=== PATIENT | female | born 1955 | race Caucasian/White ===

== ENCOUNTER → 2017-06-08 11:59 | Outpatient (CLI) | payer OTHER, SELFPAY ==
[2017-06-08 13:33] LABS: Progesterone Level 14.23 ng/mL (See Comment)
[2017-06-08 13:37] LABS: Estradiol 41.2 pg/mL; Free T3 2.6 pg/mL (2.18-3.98); T4 Free Direct 0.85 ng/dL (0.76-1.46); Thyroid Stim Hormone (TSH) 0.58 uIU/mL (0.358-3.74)
== END ==
PROVIDERS: Family Provider Student in an Organized Health Care Education/Training Program; PCP Student in an Organized Health Care Education/Training Program; Visit Provider Specialist
DX: N95.1 Menopausal and female climacteric states (principal); E03.8 Other specified hypothyroidism
CPT/HCPCS: 36415; 82670; 84144; 84403; 84439; 84443; 84481

== ENCOUNTER → 2017-09-06 15:37 | Outpatient (CLI) | payer OTHER, SELFPAY ==
[2017-09-06 18:32] LABS: Estradiol 43.5 pg/mL; Thyroid Stim Hormone (TSH) 0.16 uIU/mL (0.358-3.74)
[2017-09-07 09:07] LABS: Progesterone Level 11.53 ng/mL (See Comment)
== END ==
PROVIDERS: Family Provider Student in an Organized Health Care Education/Training Program; PCP Student in an Organized Health Care Education/Training Program; Visit Provider Specialist
DX: E03.8 Other specified hypothyroidism (principal); N95.1 Menopausal and female climacteric states
CPT/HCPCS: 36415; 82670; 84144; 84403; 84443; 84481

== ENCOUNTER → 2017-12-27 11:55 | Outpatient (CLI) | payer OTHER, SELFPAY ==
[2017-12-27 13:22] LABS: Estradiol 35.7 pg/mL
== END ==
PROVIDERS: Family Provider Student in an Organized Health Care Education/Training Program; PCP Student in an Organized Health Care Education/Training Program; Referring Provider Specialist; Visit Provider Specialist
DX: N95.1 Menopausal and female climacteric states (principal); E03.8 Other specified hypothyroidism
CPT/HCPCS: 36415; 82670; 84144; 84403; 84481

== ENCOUNTER → 2018-05-24 08:56 | Outpatient (CLI) | payer OTHER, SELFPAY ==
[2018-05-24 10:31] LABS: Estradiol 32.9 pg/mL; Free T3 6.3 pg/mL (2.18-3.98)
[2018-05-24 10:33] LABS: Progesterone Level 30.19 ng/mL (See Comment)
== END ==
PROVIDERS: Family Provider Student in an Organized Health Care Education/Training Program; PCP Student in an Organized Health Care Education/Training Program; Referring Provider Specialist; Visit Provider Specialist
DX: E03.8 Other specified hypothyroidism (principal); N95.1 Menopausal and female climacteric states
CPT/HCPCS: 36415; 82670; 84144; 84403; 84481

== ENCOUNTER → 2018-08-19 | Outpatient (CLI) | payer OTHER, SELFPAY ==
[2018-08-19 12:52] LABS: Progesterone Level 18.51 ng/mL (See Comment)
[2018-08-19 12:54] LABS: Estradiol 43.9 pg/mL; Free T3 2.7 pg/mL (2.18-3.98)
== END | disposition home or self-care (01) ==
LOC: LAB 11:56
PROVIDERS: Family Provider Student in an Organized Health Care Education/Training Program; PCP Student in an Organized Health Care Education/Training Program; Referring Provider Specialist; Visit Provider Specialist
DX: E03.9 Hypothyroidism, unspecified (principal); N95.1 Menopausal and female climacteric states
CPT/HCPCS: 36415; 82670; 84144; 84403; 84481

== ENCOUNTER → 2019-08-05 07:06 | Outpatient (CLI) | payer OTHER, SELFPAY ==
--- NOTE | 2019-08-05 07:16 | BI_ITS ---
MAMMOGRAPHY - BILATERAL SCREENING REASON FOR EXAM: Female, 63 years old. Routine annual screening examination. PERTINENT HISTORY: Aunt with breast cancer. TECHNIQUE: Digital bilateral breast eva (3D mammographic acquisition) in the CC and MLO projections. 2-D mediolateral oblique (MLO) and craniocaudad (CC) views of both breasts were obtained. CAD: Full Field Digital Mammography with Computer Added Detection was performed. COMPARISON: Comparison is made with prior examination dated January 29, 2017 and January 06, 2015. FINDINGS: Breast Composition: The breasts are heterogeneously dense, which may obscure small masses. There are no dominant masses or suspicious calcifications. Stable small benign-appearing bilateral axillary lymph nodes. No other significant abnormalities are identified. There has been no significant change since the prior study. BI/SCREEN MAMM (CAD) W/EVA BILAT IMPRESSION: Stable bilateral screening mammogram. Yearly follow-up mammogram recommended. (A) ASSESSMENT CATEGORY: BIRADS Category 2: Benign. A letter regarding these results will be sent to the patient by the facility within 30 days. Approximately 10% of breast cancers are not detected by mammography. A normal mammogram should not delay biopsy of a clinically suspicious abnormality. [id number] Electronically Signed: Silvestre Suggs, at 12:15 EDT , Service support ,
--- NOTE | 2019-08-05 07:59 | BD_ITS ---
STUDY: DUAL ENERGY X-RAY ABSORPTIOMETRY / DXA REASON FOR EXAM: Female, 63 years old. 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 COMPARISON: Comparison is made with prior study dated January 06, 2015. FINDINGS: Lumbar Spine (L1-L4): g/cm2 (1.131) / T-score (-0.4) / Z-score (0.9) Findings are suggestive of normal bone density with a low fracture risk. There is straightening of the normal thoracic kyphosis. Left Femur Total: g/cm2 (0.924) / T-score (-0.7) / Z-score (0.4) Left Femoral Neck: g/cm2 (0.841) / T-score (-1.4) / Z-score (-0.1) Right Femur Total: g/cm2 (0.85) / T-score (-1.2) / Z-score (-0.2) Right Femoral Neck: g/cm2 (0.830) / T-score (-1.5) / Z-score (-0.2) The T-Scores on the most recent prior examination were: Lumbar Spine (L1-L4): There has been improvement of bone density since the previous examination. Left Femur Total: which represents an improvement of 1.4%. Right Femur Total: which represents a worsening of 0.1%. BD/Dexa Bone Density Study IMPRESSION: The patient is considered osteopenic as outlined below according to World Endy Organization (WHO) criteria with a low fracture risk. There has been improvement of bone density since the previous examination. Reference Information: The T-score is the number of standard deviations above or below the standard which is normal for young adults at their peak bone mineral density. The World Health Organization (WHO) interprets the T-scores as follows: Above -1 Normal bone density Between -1 and -2.5 Osteopenia Equal to / or below -2.5 Osteoporosis As a practical clinical guideline, osteopenia may be graded as follows: Mild -1 through -1.5 Moderate -1.6 through -2.0 Severe -2.1 through -2.4 The Z-score is the number of standard deviations above or below age-matched controls. A Z-score of less than -1.5 would be considered abnormal. References: 1. NIH Osteoporosis and Related Bone Diseases http://www.osteo.org 2. International Society for Clinical Densitometry http://www.iscd.org 3. National Osteoporosis Foundation http://www.nof.org Electronically Signed: Silvestre Suggs, at 12:40 EDT , Service support ,
== END ==
PROVIDERS: PCP Student in an Organized Health Care Education/Training Program; Referring Provider Specialist; Visit Provider Specialist
DX: Z12.31 Encounter for screening mammogram for malignant neoplasm of breast (principal); Z13.820 Encounter for screening for osteoporosis
CPT/HCPCS: 77063; 77067; 77080

== ENCOUNTER 2019-12-31 12:55 | Emergency (ER) | payer OTHER, SELFPAY ==
[2019-12-31 12:56] VITALS: BP 127/80; PULSE 77; RESP 18; TEMP 35.4; O2SAT 99; BMI 21.6
--- NOTE | 2019-12-31 12:59 | RAD_ITS ---
STUDY: X-RAY - LEFT HAND REASON FOR EXAM: Female, 64 years old. 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 COMPARISON: None. FINDINGS: Normal radiocarpal articulation. Normal distal radioulnar joint. Normal visualized carpal bones. Normal carpal articulations Normal carpometacarpal articulation of the thumb. Normal second through fifth carpometacarpal joints. Normal metacarpi. Normal metacarpophalangeal joint of the thumb. Normal interphalangeal joint of the thumb. Normal proximal and distal phalanges of the thumb. Normal metacarpophalangeal joints of the second through fifth fingers. Normal proximal and distal interphalangeal joints of the second through fifth fingers. Normal phalanges of the second through fifth fingers. Soft tissue laceration overlying the distal phalanx of the fourth digit. RAD/Hand Min 3 Views IMPRESSION: Soft tissue laceration overlying the distal phalanx of the fourth digit. No radiopaque foreign body is seen. Electronically Signed: Silvestre Suggs, at 13:48 EST , Service support ,
--- NOTE | 2019-12-31 14:25 | ED.VIS.GEN ---
History of Present Illness Chief Complaint: Laceration Narrative: Patient presents with left hand laceration. She incised the volar part of her third and fourth digits. Tetanus is not up-to-date. This happened just prior to arrival she also has paresthesias distally. Past Medical History - Allergies and Home Meds Allergies/Adverse Reactions: Allergies No Known Allergies Allergy (Verified 12/31/19 12:59) Primary Care Physician: Tereso Tejada DO [Primary Care Provider] - Past Medical History: None Smoking Status: Never smoker Review of Systems Musculoskeletal: Reports: Extremity Pain Skin: Reports: Wounds Neurological: Reports: Parasthesia Hematologic: Denies: Easy bruising, Easy bleeding Physical Exam Vital Signs/Narrative: Vital Signs Temp Pulse Resp BP Pulse Ox 12/31/19 12:56 95.7 F L 77 18 127/80 H 99 General: Well nourished, Well developed ENT: Moist mucous membranes Cardiovascular: Regular rate Respiratory: No distress Back: Nontender, Normal Inspection Extremities: - - Laceration over the volar part of third and fourth digits, this is associated with decreased sensation on the fourth digit. There is also decreased flexion of the DIP on that fourth digit. Third digit has normal sensation as well as flexion tendon function. Skin: Normal color, - - Wound as above Diagnostic/Tx/Re-eval - Medical Decision Making Wound was sutured after using 1% lidocaine local analgesia. I discussed the patient with Dr. Martinez who will see the patient tomorrow in his office. The worry is for a tendon laceration which will need to be repaired. Patient also splinted with a volar Ortho-Glass splint. Procedures - Lacerations No standard instances Length: 1.57 in - 4 cm total (2 cm each finger) Depth: Skin Shape: Linear Prep: Tena Irrigated (ml): 10 Suture Information: Vicryl, Simple, 4-0 ED Disposition - Plan for ED Patient: Disposition: Home or Assisted Living Diagnosis: Hand laceration, Tendon laceration Instructions: ED Laceration Hand with Possible Nerve Injury Sutures Glue Prescriptions: Cephalexin [Keflex] 500 mg PO Q6 #20 cap Prescription Printed Hydrocodone Bitart/Apap 5-325 [[place] 5MG-325MG] 1 tab PO Q4H PRN PRN 2 Days #10 tab PRN Reason: Pain Prescription Printed Referrals: Byron Weiner MD [STAFF PHYSICIAN] - 1 Day
[2019-12-31] MEDS: Diphth,Pertuss(Acell),Tet Vac 0.5 ML Vial IM (14:36)
[2019-12-31 14:48] VITALS: BP 142/78
[2019-12-31] MEDS: Cefazolin 1 GM/5 ML Vial IM (15:10)
[2019-12-31 15:58] VITALS: BP 143/80; PULSE 84; RESP 18
== END 2019-12-31 16:02 | disposition home or self-care (01) ==
PROVIDERS: Emergency Provider Emergency Medicine; PCP Student in an Organized Health Care Education/Training Program
DX: S61.412A Laceration without foreign body of left hand, initial encounter (principal); S66.125A Laceration of flexor muscle, fascia and tendon of left ring finger at wrist and hand level, initial encounter; X58.XXXA Exposure to other specified factors, initial encounter; Y93.9 Activity, unspecified; Y92.9 Unspecified place or not applicable
CPT/HCPCS: 12002; 29125; 73130; 90471; 90715; 96372; 99284

== ENCOUNTER 2020-01-05 06:09 | Day surgery (SDC) | payer OTHER, SELFPAY ==
[2020-01-01 15:10] VITALS: BMI 21.8
--- NOTE | 2020-01-04 19:40 | PCM.HP.BLA ---
History and Physical Date of Admission: 01/05/20 HISTORY OF PRESENT ILLNESS Patient is a 64 year old female sustained lacerations to her left long finger and left ring finger after using hedge trimmers at home on 12/31/19. She went to the ED for evaluation. The x-ray showed no fractures or foreign body present. She was unable to flex her ring finger. She also has paresthesias on her ring finger distal to the laceration. She is able to flex her long finger a little bit with some limitation secondary to swelling. The lacerations were on the volar surface over the middle phalanx (zone II). The wounds were cleansed and suture repaired and a splint was applied. She is right hand dominant. She presents today for further evaluation and treatment. PAST MEDICAL HISTORY Injury while performing home maintenance Injury of digital nerve of left ring finger Laceration of left middle finger Laceration of flexor muscle, fascia and tendon of left ring finger at wrist and hand level, initial encounter Laceration of flexor muscle, fascia and tendon of left middle finger at wrist and hand level, initial encounter Asthma Bone fracture De Quervain's tenosynovitis Depression Gastrointestinal problem Hearing problem Hives Hormone deficiency Osteopenia Raynauds syndrome Thyroid disease Ulcer Vision problems UTI (urinary tract infection) PAST SURGICAL HISTORY excision of lesion sinus surgery ALLERGIES corn grape monosodium glutamate nut Quinolones MEDICATIONS Estradiol Progesterone, Micronized [Progesterone] Cephalexin [Keflex] Fluoxetine HCl Montelukast [Singulair] Albuterol Inhaler [Ventolin Hfa (SP)] Ascorbic Acid [Vitamin C] Cetirizine HCl [Zyrtec] Cholecalciferol (VIT D3) [Vitamin D] Magnesium Thyroid [[place] Thyroid] Zinc FAMILY HISTORY Mother - Bleeding disorder, Kidney disease, Lupus, CVA (cerebral vascular accident) Father - Throat cancer, CVA (cerebral vascular accident) SOCIAL HISTORY Smoking Status: Never smoker alcohol intake: current substance use type: does not use REVIEW OF SYSTEMS General - Denies fever, fatigue, and weight loss. Eyes - Denies cataracts and glaucoma. ENT - Denies nasal congestion and sore throat. Endocrine - Denies excessive thirst and urination. Skin - Denies suspicious lesions and skin cancer. Musculoskeletal - Denies joint pain, joint stiffness, weakness of muscles and joints, back pain, and arthritis. Neuro - Denies headaches. Cardiovascular - Denies chest pain, fatigue, and shortness of breath with exertion. Psych - Denies anxiety and depression. Respiratory - Denies chronic cough and shortness of breath. Gastrointestinal - Denies nausea, vomiting, diarrhea, and constipation. Hematologic - Denies abnormal bruising and bleeding. Genitourinary - Denies hematuria and urinary frequency. PHYSICAL EXAMINATION General - Alert and oriented. HEENT - PERRL. EOMI. Throat is clear. Neck - Supple and non-tender. No cervical adenopathy. Lungs- Clear to auscultation. Heart - Regular rate and rhythm. Abdomen - Soft and non distended. Extremities - FROM right upper extremity. No axillary adenopathy. Radial pulses are palpable. On the volar aspect of the left ring finger over the middle phalanx is a 2.5 cm horizontal laceration (zone II). She is not able to flex her finger at the DIP joint and at the PIP joint. Mild swelling present. She has paresthesias involving the ring finger distal to the laceration with minimal sensation to pinprick. There is a 1.5 cm laceration On the volar radial aspect of the left long finger over the middle phalanx is a 1.5 cm horizontal laceration (zone II). She is able to flex her finger at the DIP and at the PIP joint but it is decreased. Mild swelling present. Both lacerations are suture repaired. Fingers are warm with good capillary refill. Neuro - CN II-XII grossly intact. Psych - Normal mood and affect. ASSESSMENT 1. 2.5 cm horizontal laceration volar aspect left ring finger over middle phalanx with flexor tendon injury, (zone II). 2. 1.5 cm horizontal laceration volar radial aspect left long finger over middle phalanx with possible flexor tendon injury, (zone II). 3. Digital nerve laceration left ring finger. 4. Injury while performing home maintenance using [employer] trimmers. PLAN X-ray reviewed. No fracture and no foreign body seen. Patient has lacerations left ring finger and left long finger in zone II. Clinically she has a flexor tendon injury left ring finger as she is unable to flex her finger. She can flex her left long finger, but is a little decreased which could be secondary to swelling. She has paresthesias left ring finger distal to the laceration both on the radial side and ulnar side suggestive of digital nerve injury. Recommend to the patient that operative exploration is needed under general anesthesia and tourniquet control on an outpatient basis. Will extend the incision in a zig zag fashion both proximally and distally to get exposure. Sometimes the proximal end of the tendon retracts into the palm to the wrist and distal forearm. Any injured structures will be repaired, namely flexor tendons and digital nerves. Even though she has some flexor function on the long finger, I will also explore that finger as well. Any injured structures will be repaired. Postop she will have a dorsal plaster splint. After discharge, she will be seen by OT for a silastic splint and after healing, proceed with range of motion exercises, strengthening, and edema management. Will schedule the surgery in the next couple of days. Patient was informed of the risks and complications of the procedure including alternatives to surgery. These were discussed with the patient personally. Patient voices understanding and wishes to proceed. Some of the risks and complications were included in a form from the [place] [employer]. Some of the risks and complications that were discussed included but were not inclusive of failure to diagnose including symptom relief, pain, infection, numbness, stiffness, loss of digit, RSD (CRPS), need for further surgery, contracture, and wound healing problems. We discussed the current risks associated with COVID-19. While it is understood that there is a community spread of COVID-19, the risk of rodrigo COVID-19 while at [facility] ([facility]) is very low; however, the risk cannot be completely mitigated because of the community spread of the disease. We discussed in detail the risk of exposure to and/or potential harm posed by the COVID-19 virus with having a surgery/procedure at this time versus the risk of delaying the surgery/procedure. It is not possible to know either the risk of delaying the surgery or procedure or chance of getting an infection with perfect accuracy, but a joint decision was made to proceed at this time with the scheduled surgery/procedure as indicated on the consent form. Patient was notified that we will need to comply with any screening or testing [facility] wishes to perform or that surgery may be delayed for any positive results. Discussed with the patient that I was tested for COVID-19 on 08/28/19 which was negative and on 09/11/19 which was negative and on 09/25/19 which was negative and on 10/09/19 which was negative and on 10/23/19 which was negative and on 11/13/19 which was negative and on 12/04/19 which was negative. My testing regimen at this time is to be COVID-19 tested every 2 weeks or so. Procedure Criteria Procedure Type: Elective COVID Risk Discussion: The surgeon/proceduralist and patient have discussed in detail the risk of exposure to and/or potential harm posed by the COVID-19 virus with having a surgery/procedure at this time versus the risk of delaying the surgery/procedure. It is not possible to know either the risk of delaying the surgery or procedure or chance of getting an infection with perfect accuracy, but a joint decision was made between the patient and the surgeon/proceduralist to proceed at this time with the scheduled surgery/procedure as indicated on the consent form.
[2020-01-05 06:40] VITALS: BP 114/63; PULSE 72; RESP 14; TEMP 36.8; O2SAT 100; BMI 22.3
[2020-01-05] MEDS: Lactated Ringers 1,000 ML 100 ML IV (06:56)
[2020-01-05] MEDS: Cefazolin 2 GM in 0.9% Normal Saline 100 ML IV (07:26)
[2020-01-05] MEDS: Mupirocin Ointment 22gm Tube 1 APPLIC (09:30)
[2020-01-05 09:52] VITALS: BP 114/63; BP 147/91; PULSE 91; RESP 16; TEMP 36.1; O2SAT 96
--- NOTE | 2020-01-05 09:53 | OP.PCM_ITS ---
Report of Operation Date of Procedure: 01/05/20 Pre-Operative Diagnosis: 1. 2.5 cm horizontal laceration volar aspect left ring finger over middle phalanx with flexor tendon injury, (zone II). 2. 1.5 cm horizontal laceration volar radial aspect left long finger over middle phalanx with possible flexor tendon injury, (zone II). 3. Digital nerve laceration left ring finger. 4. Injury while performing home maintenance using hedge trimmers. Post-Operative Diagnosis: 1. 2.5 cm horizontal laceration volar aspect left ring finger over middle phalanx with flexor dgitorum profundus (FDP) tendon injury, (zone II). 2. 1.5 cm horizontal laceration volar radial aspect left long finger over middle phalanx, (zone II). 3. Ulnar digital nerve laceration left ring finger. 4. Radial digital nerve laceration left ring finger. 5. Injury while performing home maintenance using hedge trimmers. Surgery/Procedure Performed:: 1. Repair flexor dgitorum profundus (FDP) tendon injury, (zone II), left ring finger. 2. Exploration 1.5 cm horizontal laceration volar radial aspect left long finger over middle phalanx, (zone II), with 4.5 cm complex closure repair. 3. Epineural repair ulnar digital nerve laceration left ring finger. 4. Epineural repair radial digital nerve laceration left ring finger. Description of Surgical Findings:: Patient is a 64 year old female sustained lacerations to her left long finger and left ring finger after using hedge trimmers at home on 12/31/19. She went to the ED for evaluation. The x-ray showed no fractures or foreign body present. She was unable to flex her ring finger. She also has paresthesias on her ring finger distal to the laceration. She is able to flex her long finger a little bit with some limitation secondary to swelling. The lacerations were on the volar surface over the middle phalanx (zone II). The wounds were cleansed and suture repaired and a splint was applied. She is right hand dominant. Patient was informed of the risks and complications of the procedure including alternatives to surgery. These were discussed with the patient personally. Patient voices understanding and wishes to proceed. Some of the risks and complications were included in a form from the [place] [employer]. Some of the risks and complications that were discussed included but were not inclusive of failure to diagnose including symptom relief, pain, infection, numb ness, stiffness, loss of digit, RSD (CRPS), need for further surgery, contracture, and wound healing problems. Total tourniquet time - 109 minutes. 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 Drains: None. Estimated Blood Loss (mL): 5 ml. Description of Procedure: Patient was taken to OR in supine position and was placed under general anesthesia. The left upper extremity was prepped and draped in the usual fashion. SCD's were placed for DVT prophylaxis. Perioperative antibiotics were given intravenously. For the procedure, I wore an N95 mask and wore proper eyewear protection. Using xylocaine with epinephrine, the left long finger and left ring fingers were infiltrated as a digital metacarpal block for postoperative pain relief. The left upper extremity was elevated and an Esmarch bandage was applied. The tourniquet was elevated to 250 mmHg. I proceeded with the surgery using loupe magnification. The sutures were removed. I extended the incisions with a marker in a proximal and distal direction in a zig zag fashion. Incisions were made. I addressed the ring finger first followed by the long finger. Incisions were carried down through the subcutaneous tissue until the tendon sheath was seen. There was a hematoma in the tendon sheath indicative of tendon injury. The skin flaps were elevated at the level of the tendon sheath and retracted back and secured with 5-0 Nylon suture. I dissected out the ulnar digital nerve and radial digital nerve. Both nerves were lacerated. I will repair the flexor tendon injury and then repair the digital nerve lacerations. I made an incision in the area of the A3 linsey. I was able to push out the hematoma. I located the distal end of the flexor digitorum profundus (FDP) tendon. The proximal end was retracted a little bit. I used a tendon retriever and was able to bring the proximal end of the FDP tendon into the operative field. The flexor digitorum superficialis (FDS) tendon was seen and was noted to be intact. The injury just involved one flexor tendon. The proximal end of the FDP tendon was brought through the decussation of the FDS tendon and tendon sheath and temporarily secured with needle stabilization. I repaired the FDP tendon laceration with a modified Cloud suture technique using 4-0 Nylon suture. This was followed by 6-0 Prolene simple running epitendinous suture. I then freed up the ulnar and radial digital nerves in the area of the laceration. They were able to be brought together without tension. I proceeded with epineural repair of both digital nerve lacerations with 8-0 Nylon simple interrupted sutures. I used 6 sutures per digital nerve. I then addressed the long finger. Incisions were carried down through the subcutaneous tissue until the tendon sheath was seen. The skin flaps were elevated at the level of the tendon sheath and retracted back and secured with 5-0 Nylon suture. The tendon sheath was intact. No evidence of injury of the tendons noted. I dissected out the radial and ulnar digital nerves. They were intact and preserved. The tourniquet was released after 109 minutes. Hemostasis was obtained with compression and electrocautery. The wounds were irrigated with saline. No vascular compromise noted on the skin flaps on both fingers. I closed the wounds with 5-0 Nylon simple interrupted and vertical mattress interrupted sutures. The length of the complex closure for the left long finger is 4.5 cm. Antibiotic ointment was applied to the suture lines followed by Xeroform gauze and 2x2 gauze and 2 inch dionne wrap. I then applied a dorsal plaster splint and webril to keep the the wrist slightly flexed and to keep the fingers from extending. This was followed with a compression gini wrap. Patient tolerated the procedure well and was sent to PACU in satisfactory condition. Patient will be sent home on antibiotics and pain medication. She will keep her left hand elevated during the initial postoperative period. Patient will followup in a week for a wound check. Will make an appointment with OT for a silastic splint and after healing, range of motion exercises, strengthening, and edema management. The sutures will be removed in 2-3 weeks. Grafts/Implants Used: None. - Complications None. - Admit VTE Documentation VTE Present on Admission: No VTE Mechan Device Prophylaxis: SCD's VTE Pharm Prophylaxis ordered?: No Surgery Charges CPT - 05203 ICD-10 - S66.125A, S64.495A, S61.213A, Y93.E9 [id number] S64.495A, S66.125A, S61.213A, &93.E9 [id number] S64.495A, S66.125A, S61.213A, &93.E9 28557 S61.213A, S66.125A, S64.495A, Y93.E9
[2020-01-05 10:00] VITALS: BP 114/63; BP 149/64; PULSE 85; RESP 16; O2SAT 96
--- NOTE | 2020-01-05 10:06 | DCINST_ITS ---
You will use the following diet at home:: No restrictions Discharge Activity: May Not Drive, May Shower - in one day. wear plastic bag o cassy left hand when showering. May shower in (days): 1 - wear plastic bag over left hand when showering. May resume sexual activity in: No Restrictions Weight Bearing Status: Weight bearing as tolerated Lifting Restrictions: no lifting left hand. Keep extremity elevated above heart level: Left Arm Call your doctor if your incision/area has: Continuous Slow Oozing, Sudden Increased Bleeding, Increased Pain/ Swelling, Increased Redness, Foul Smelling Discharge, Swelling at the incision site Call your doctor if you observe: Fever of 101 or Higher, Coldness, Increased Pain, Shortness of breath, Chest pain, Calf discomfort Suture Line Care: - - after operative dressing removed in the office, apply antibiotic ointment to suture line dailiy. Change Dressing in (Days):: 7 - will change operative dressing in the office. Cleanse incision/area with: - - wear plastic bag over left hand when showering. Allergies/Adverse Reactions: Allergies corn Allergy (Verified 01/05/20 06:39) Food Allergy grape Allergy (Verified 01/05/20 06:39) Food Allergy monosodium glutamate Allergy (Verified 01/05/20 06:39) Food Allergy nut - unspecified Allergy (Verified 01/05/20 06:39) Food Allergy Quinolones Adverse Reaction (Verified 01/05/20 06:39) PT UNSURE OF REACTION Medications to take at Discharge Estradiol 0.5 mg PO DAILY 10/21/13 Progesterone, Micronized [Progesterone] 100 mg PO DAILY 10/21/13 Fluoxetine HCl 40 mg PO DAILY 12/31/19 Montelukast [Singulair] 10 mg PO DAILY 12/31/19 Albuterol Inhaler [Ventolin Hfa] 1 - 2 puff INHALATION Q4H PRN PRN 01/02/20 Ascorbic Acid [Vitamin C] 500 mg PO DAILY 01/02/20 Cetirizine HCl [Zyrtec] 10 mg PO DAILY 01/02/20 Cholecalciferol (VIT D3) [Vitamin D3] 1,000 unit PO DAILY 01/02/20 Magnesium 250 mg PO DAILY 01/02/20 Thyroid [[place] Thyroid] 60 mg PO DAILY 01/02/20 Zinc 50 mg PO DAILY 01/02/20 Doxycycline [Vibramycin] 100 mg PO BID #10 cap 01/05/20 Lactobacillus Acidophilus/Fos [Acidophilus Probiotic Tablet] 1 ea PO BID #20 tab 01/05/20 Oxycodone HCl/Acetaminophen [Percocet 5/325] 1 tablet PO Q4H PRN PRN 7 Days #40 tablet 01/05/20 The following prescriptions were given: Lactobacillus Acidophilus/Fos [Acidophilus Probiotic Tablet] 1 ea PO BID #20 tab Transmission Status: Pending to [facility] Oxycodone HCl/Acetaminophen [Percocet 5/325] 1 tablet PO Q4H PRN PRN 7 Days #40 tablet PRN Reason: Pain Score 6-10 Transmission Status: Sent to [facility] Doxycycline [Vibramycin] 100 mg PO BID #10 cap Transmission Status: Pending to [facility] Primary Care Physician: Tereso Tejada DO [Primary Care Provider] - Test Results: Test results from this visit will be discussed in further detail at your follow- up appointment, if applicable. Please Follow Up With: Byron Weiner MD When: one week. call [phone] for appt. Please Follow Up With: occupational therapy When: one week. We will make the appt. Proposed Discharge Date: 01/05/20
[2020-01-05 10:13] VITALS: BP 114/63; BP 147/81; PULSE 77; RESP 16; TEMP 37.7; O2SAT 100
[2020-01-05 11:07] VITALS: BP 114/63; BP 133/69; PULSE 86; RESP 18; TEMP 36.8; O2SAT 97
== END 2020-01-05 11:16 | disposition home or self-care (01) ==
LOC: SDC 06:10 → AC 06:11
PROVIDERS: PCP Student in an Organized Health Care Education/Training Program; Referring Provider Surgery; Visit Provider Surgery
PROC: (CPT 13132; principal; 2020-01-05 07:15)
DX: S66.125A Laceration of flexor muscle, fascia and tendon of left ring finger at wrist and hand level, initial encounter (principal); S64.495A Injury of digital nerve of left ring finger, initial encounter; S61.213A Laceration without foreign body of left middle finger without damage to nail, initial encounter; Y93.E9 Activity, other interior property and clothing maintenance; Z20.828 Contact with and (suspected) exposure to other viral communicable diseases; M65.4 Radial styloid tenosynovitis [de Quervain]; F32.9 Major depressive disorder, single episode, unspecified; M85.80 Other specified disorders of bone density and structure, unspecified site; E07.9 Disorder of thyroid, unspecified; J45.909 Unspecified asthma, uncomplicated; Z87.440 Personal history of urinary (tract) infections; Z79.899 Other long term (current) drug therapy
CPT/HCPCS: 13132; 26356; 64831; 64832; 87426; C9803; J7120; J2405

== ENCOUNTER 2020-04-09 08:00 | Outpatient (RCR) | payer OTHER, SELFPAY ==
--- NOTE | 2020-01-17 09:04 | HP.OTEVAL_ITS ---
Patient's Visit Information APRIL EDWARDS is a 64 year old F, referred to Occupational Therapy by DELFINA Parmar, with a diagnosis of left hand tenson laceration nerve laceration RF LF. Date of Evaluation: 01/15/20 Occupational Therapist: Denisha Chiu, RULA/Elisa, CHT - Subjective This 64 year old female was seen for OT eval with dx of laceration of tendon left MF RF. pt states while working with [employer] trimers pt lacerated her hand on DOI 12/31/19 and DOS 01/05/20 for tendon and nerve repair. 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 Pt arrives 10 s/p for custom orthosis and initiation of active motion program. - Pain left hand 3 Pain Intensity Range: 3 - ROM ROM Comments: pt demo FUll AROM of right hand. left hand will test at later date - Strength Jewelry Mechanic: right 65# Left NT Lateral Pinch: right 18# left NT Tripod Pinch: right 16# left NT Tip-to-Tip Pinch: right 8# left NT Strength Comments: left hand will be tested at later date - Sensation Sensation Comments: pt reports tingling senstion left hand - Quick DASH-Disab of Arm,Shoulder& Hand Quick DASH Score: 50.0000 - Goals Goal:100% adherence to protocol: Yes Comment: active FDP protocol Goal:Daily scar massage when approriate: Yes Goal:ROM equal to unaffected hand: Yes Goal:Jewelry Mechanic/Pinch strength at least 75% of unaffected hand: Yes Goal:No pain with affected hand use: Yes Goal:PIP Circumferences equal to unaffected hand: Yes Goal:Full use of affected hand in daily activities including: Yes Goal:Improvement in sensation documented by [place]: Yes Goal:Decrease scar hypersensitivity: Yes - Rehabilitation General Assessment: 2.5 cm horizontal laceration volar aspect left ring finger over middle phalanx with flexor dgitorum profundus (FDP) tendon injury, (zone II). 2. 1.5 cm horizontal laceration volar radial aspect left long finger over middle phalanx, (zone II). 3. Ulnar digital nerve laceration left ring finger. 4. Radial digital nerve laceration left ring finger. 5. 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 pt is currently 10 day s/p from Repair flexor dgitorum profundus (FDP) tendon injury, (zone II), left ring finger. 2. Exploration 1.5 cm horizontal laceration volar radial aspect left long finger over middle phalanx, (zone II), with 4.5 cm complex closure repair. 3. Epineural repair ulnar digital nerve laceration left ring finger. 4. Epineural repair radial digital nerve laceration left ring finger. pt is in need of custom dorsal blocking orthosis and ed. on active ROM protocol for FDP. Due to newly healing structures from laceration and repiar pt would benefit from skilled OT services 1-2x week for 8 weeks to return pt to PLOF. Today therapist gage. custom orthosis and ed, pt on skin care, precautions and use of orthosis along with initiation of Active ROM. pt demo understanding and agree to POC. Rehabilitation Potential: Good - Anticipated Interventions Early Active Motion, A/AAROM/PROM, Strengthening, Edema Control, Scar Care, Triggerpoint Release, Desensitization, Sensory Retraining, Wound Care, Modalities, Orthoses, Joint Protection/Energy Conservation, Ergonomic Education, Fine Motor Coord/Phong, Sensory Stimulation - Visit Plan Frequency: 1-2x /Week Duration: 2 Months General Plan: will initiate early active program to increase FDP motion -. edema. ROM. scar. PROM TEXT: Thank you for the opportunity to evaluate your patient. For Medicare and Medicare HMO plans, please review the plan of care and approve it. It will need to be FAXED BACK to us at [phone] for Medicare purposes. Please let me know if there are questions or concerns regarding this plan of care. Physician Signature: Date:
--- NOTE | 2020-04-09 09:59 | HP.OTDCSUM_ITS ---
It has been my pleasure to treat APRIL EDWARDS under orders from DELFINA Parmar, for the diagnosis of left hand tenson laceration nerve laceration RF LF for a total of 17 visit(s). Please see the following information for a summary of their discharge status. % Improvement: 80 Objective/Function: Limited ROM L RF DIP. Good ROM and tolerance PROM at PIP. L RF PIP flexion to 95*, DIP 15* flexion. Patient Goals: Regain Mobility, Improve Fine Motor Skills, Use Hand/Wrist/Arm Normally Again Goal:100% adherence to protocol: Yes Goal:Daily scar massage when approriate: Yes Goal:ROM equal to unaffected hand: Yes Goal:Software Trainer/Pinch strength at least 75% of unaffected hand: Yes Goal:No pain with affected hand use: Yes Goal:PIP Circumferences equal to unaffected hand: Yes Goal:Full use of affected hand in daily activities including: Yes Goal:Improvement in sensation documented by [place]-Damian: Yes Goal:Decrease scar hypersensitivity: Yes Plan: D/C Discharge Comments: Pt has made great gains in her ROM following a flexor tendon repair. Pt continues to be limited with only the RF DIP flex. pt continues to have sensory disturbance but pt understands injury- pt to cont with scar mt and return to using her hand with all ADLs and IADLS. If there are questions or concerns regarding this patient's occupational therapy, please fell free to call me at [phone]. Thank you for the referral of this patient. Sincerely, Denisha Chiu, OTR/L, CHT
== END 2020-04-09 13:13 | disposition home or self-care (01) ==
LOC: OT 08:00
PROVIDERS: PCP Student in an Organized Health Care Education/Training Program; Referring Provider Nurse Practitioner Family; Visit Provider Nurse Practitioner Family
DX: S66.123D Laceration of flexor muscle, fascia and tendon of left middle finger at wrist and hand level, subsequent encounter (principal); S66.125 Laceration of flexor muscle, fascia and tendon of left ring finger at wrist and hand level; S61.213D Laceration without foreign body of left middle finger without damage to nail, subsequent encounter; S64.49 Injury of digital nerve of other finger; Y93.E9 Activity, other interior property and clothing maintenance
CPT/HCPCS: 97035; 97110; 97140; 97166; 97760

== ENCOUNTER 2020-07-10 14:21 | Emergency (ER) | payer OTHER, SELFPAY ==
[2020-07-10] VITALS (8 sets, daily range): BP systolic 103–134; BP diastolic 67–95; PULSE 81–109; RESP 20–28; TEMP 35.8; O2SAT 96–100; BMI 24.0
--- NOTE | 2020-07-10 14:32 | EKG12_ITS ---
Test Reason : TRAUMA Blood Pressure : / mmHG Vent. Rate : 103 BPM Atrial Rate : 103 BPM P-R Int : 208 ms QRS Dur : 076 ms QT Int : 356 ms P-R-T Axes : 085 071 024 degrees QTc Int : 466 ms Sinus tachycardia with Premature atrial complexes ST & T wave abnormality, consider lateral ischemia Abnormal ECG Confirmed by TRACI SHIPMAN, MICKY ([id number]), metropolitan editor PIETRO ROMAN ([id number]) on 07/13/2020 9:23:08 AM Referred By: KEMAL Confirmed By:MICKY AVILES MD
--- NOTE | 2020-07-10 14:32 | CT_ITS ---
EXAM: CT CERVICAL SPINE WITHOUT INTRAVENOUS CONTRAST : 1955 CLINICAL INDICATION: trauma TECHNIQUE: Helically acquired images were obtained of the cervical spine without intravenous contrast. 2D reformatted images were reviewed. This CT exam was performed using one or more of the following dose reduction techniques: automated exposure control, adjustment of the mA and/or kV according to patient size, and/or use of iterative reconstruction technique. This report was created using [employer] report generation technology. COMPARISON: None. FINDINGS: VERTEBRAE: There is mild reversal of the normal cervical lordosis. No fracture. No traumatic subluxation. No discrete lytic or blastic abnormality. Normal craniocervical junction and cervicothoracic junction. DISCS/SPINAL CANAL/NEURAL FORAMINA: There is disc space narrowing at C5-6 and C6/7. SOFT TISSUES: Unremarkable. No prevertebral soft tissue swelling. LYMPH NODES: Unremarkable. No cervical adenopathy. LUNG APICES: Unremarkable as visualized. Clear. CT/Spine Cervical without Contras IMPRESSION: 1. No acute osseous abnormalities. 2. Mild degenerative changes with disc space narrowing. 3. Straightening of the normal cervical lordosis which may be due to a muscular strain. Individualized dose optimization techniques were used for this CT. at 1545 Reported and signed by: Patrick Tovar MD Electronically Signed: Patrick Tovar MD at 15:43 EDT Tel , Service support ,
--- NOTE | 2020-07-10 14:32 | CT_ITS ---
EXAM: CT HEAD WITHOUT INTRAVENOUS CONTRAST : 1955 CLINICAL INDICATION: trauma TECHNIQUE: Multiple axial images were obtained of the head without intravenous contrast. This CT exam was performed using one or more of the following dose reduction techniques: automated exposure control, adjustment of the mA and/or kV according to patient size, and/or use of iterative reconstruction technique. This report was created using [employer] report generation technology. COMPARISON: None. FINDINGS: BRAIN AND EXTRA-AXIAL SPACES: Unremarkable. No intra- or extra-axial hemorrhage. No evidence of acute infarct. No intracranial mass or mass effect. There is preservation of the cleaning/white matter interface. Posterior fossa structures are unremarkable. Ventricles are appropriate for age. No hydrocephalus. Basal cisterns are patent. BONES/JOINTS: Unremarkable. No discrete lytic or blastic abnormalities. SOFT TISSUES: There is a scalp hematoma over the high posterior right calvarium. SINUSES: Unremarkable as visualized. Clear. MASTOID AIR CELLS: Unremarkable. Clear. ORBITS: Visualized globes, extraocular muscles, optic nerves and retrobulbar fat appear unremarkable. CT/Brain/Head without Contrast IMPRESSION: No acute findings in the head/brain. Individualized dose optimization techniques were used for this CT. at 1543 Reported and signed by: Patrick Tovar MD Electronically Signed: Patrick Tovar MD at 15:42 EDT Tel , Service support ,
--- NOTE | 2020-07-10 14:34 | CT_ITS ---
We are attempting to reach an attending provider to discuss findings. An addendum with communication details will be sent when the communication is complete. EXAM: CT CHEST, ABDOMEN AND PELVIS WITH INTRAVENOUS CONTRAST : 1955 CLINICAL INDICATION: trauma -- TRAUMA ONLY: IV Contrast. Dont wait for creatinine TECHNIQUE: Helically acquired images were obtained of the chest, abdomen and pelvis with intravenous contrast. This CT exam was performed using one or more of the following dose reduction techniques: automated exposure control, adjustment of the mA and/or kV according to patient size, and/or use of iterative reconstruction technique. This report was created using [employer]works report [employer] technology. CONTRAST: IV 100mL [id number] COMPARISON: None. FINDINGS: CHEST: LUNGS AND PLEURAL SPACES: There is a moderate right-sided pneumothorax anteriorly. There is minimal right basilar atelectasis. No mass. No pleural effusion or thickening. HEART: Unremarkable. Heart size is normal. No pericardial effusion. MEDIASTINUM: Unremarkable. No mediastinal or hilar adenopathy. Esophagus is unremarkable. No hiatal hernia. THYROID: Unremarkable. No thyroid lesions. ABDOMEN: LIVER: Unremarkable. Homogeneous. No focal mass. GALLBLADDER AND BILE DUCTS: Unremarkable. No calcified gallstones. No gallbladder distention or wall edema. No intra- or extrahepatic biliary ductal dilation. PANCREAS: Unremarkable. No focal cystic or solid mass. SPLEEN: Unremarkable. Normal size without focal cystic or solid mass. ADRENALS: Unremarkable. No nodules. KIDNEYS AND URETERS: Unremarkable. Normal renal size and position. No hydronephrosis. STOMACH AND BOWEL: Unremarkable. No stomach or bowel distention. No focal inflammatory change. PELVIS: APPENDIX: No evidence of acute appendicitis. BLADDER: Unremarkable. REPRODUCTIVE: Unremarkable as visualized. No mass. CHEST, ABDOMEN and PELVIS: INTRAPERITONEAL SPACE: Unremarkable. No ascites or other fluid collection. No free air. BONES/JOINTS: There is a fracture of the right clavicle. There are fractures of the right second through 6 fractures anteriorly. There are also fractures of the right seventh eighth and 10th ribs posteriorly. No suspicious lytic or blastic abnormality. SOFT TISSUES: Unremarkable. No discrete abdominal or pelvic wall hernia. VASCULATURE: Unremarkable. Aorta is non-dilated. No aortic dissection. No obvious central pulmonary embolism although this study was not performed with the pulmonary embolism protocol. LYMPH NODES: Unremarkable. No enlarged lymph nodes. CT/CT Chest, Abd, Pel w/Contrast IMPRESSION: 1. Fracture of the right clavicle as well as the right second through sixth ribs anteriorly as well as the right seventh eighth and 10th ribs posteriorly. There is a moderate sized right-sided pneumothorax anteriorly. 2. No acute abnormalities in the abdomen or pelvis. Individualized dose optimization techniques were used for this CT. at 1550 Reported and signed by: Patrick Tovar MD Electronically Signed: Patrick Tovar MD at 15:49 EDT Tel , Service support ,
[2020-07-10] MEDS: Ondansetron 4 MG/2 ML Vial IV (14:43)
[2020-07-10] MEDS: fentaNYL 100 MCG/2 ML Ampul 25 MCG IV (14:44)
[2020-07-10 14:48] LABS: Absolute Lymphocyte Count 4.62 X10^3/uL (0.83-4.51); Absolute Neutrophil Count 9.5 X10^3/uL (2.0-7.7); Basophil# 0.06 X10^3/uL; Basophil% 0.4 % (0-1); Eosinophil# 0.34 X10^3/uL; Eosinophils% 2.2 % (0-5); Hematocrit 39.3 % (37-47); Hemoglobin 12.8 g/dL (12.0-15.0); Lymphocyte # 4.62 X10^3/ul (0.83-4.51); Mean Corp Hgb Conc 32.6 g/dL (32-36); Mean Corpuscular Hgb 30.3 pg (27.0-32.0); Mean Corpuscular Volume 92.9 fL (81-99); Monocyte% 4.5 % (0-10); NRBC Flagged by Analyzer 0 % (0-5); Neutrophil # 9.54 X10^3/uL (2.7-7.7); Neutrophil % 62.1 % (47-70); Platelet Count 396 K/mm3 (150-450); RBC Distribution Width SD 44.2 fl (35.1-43.9); Red Blood Count 4.23 M/mm3 (4.2-5.4); White Blood Count 15.4 K/mm3 (4.4-11.0)
[2020-07-10 14:58] LABS: Anion Gap 7 (5-15); BUN 18 mg/dL (7-18); Calcium,Total 8.7 mg/dL (8.5-10.1); Chloride 102 mmol/L (98-107); Creatinine, Serum 0.86 mg/dL (0.55-1.02); EST Glomerular Filtration Rate 71 mL/min (>60); Est Glom Filt Rate - Afr Amer 86 mL/min (>60); Estimated Creatinine Clearance 61.03 ml/min; Glucose 108 mg/dL (74-106); Potassium 3.5 mmol/L (3.5-5.1); Sodium Level 136 mmol/L (136-145)
--- NOTE | 2020-07-10 15:08 | EDS_ITS ---
HPI History of Present Illness Chief Complaint: Trauma Informant: patient and EMS Onset/Context/Timing Onset: Today Mechanism/Context: Fall (Thrown from a horse) Current Severity: Moderate Maximum Severity: Moderate Narrative Narrative: Patient presents after being thrown off her horse. She states she was not wearing a helmet. She does not believe she lost consciousness at the time of the fall. EMS does note as they were loading her into the squad she did have a brief syncopal episode. She is complaining of pain to the right ribs and right clavicle. She is right-hand dominant. [facility] Medical History (Updated 07/10/20 @ 16:[address] Elida Glover MD) Allergies Asthma Bone fracture De Quervain's tenosynovitis Depression Gastrointestinal problem Hearing problem Hives Hormone deficiency Injury of digital nerve of left ring finger Injury while performing home maintenance Laceration of flexor muscle, fascia and tendon of left middle finger at wrist and hand level, initial encounter Laceration of flexor muscle, fascia and tendon of left ring finger at wrist and hand level, initial encounter Laceration of left middle finger Osteopenia Raynauds syndrome Thyroid disease Ulcer UTI (urinary tract infection) Vision problems Home Medications estradiol 0.5 mg PO DAILY 10/21/13 [History Last Taken Unknown] progesterone micronized 100 mg PO DAILY 10/21/13 [History Last Taken Unknown] fluoxetine 40 mg PO DAILY 12/31/19 [History Last Taken Unknown] montelukast 10 mg PO DAILY 12/31/19 [History Last Taken Unknown] albuterol sulfate 1 - 2 puff INHALATION Q4H PRN PRN 01/02/20 [History Last Taken Unknown] ascorbic acid (vitamin C) 500 mg PO DAILY 01/02/20 [History Last Taken Unknown] cetirizine 10 mg PO DAILY 01/02/20 [History Last Taken Unknown] cholecalciferol (vitamin D3) 1,000 unit PO DAILY 01/02/20 [History Last Taken Unknown] magnesium 250 mg PO DAILY 01/02/20 [History Last Taken Unknown] thyroid (pork) 105 mg PO DAILY 01/02/20 [History Last Taken 01/05/20 05:15 60 MG] zinc 50 mg PO DAILY 01/02/20 [History Last Taken Unknown] Lactobac acidoph-fructooligos 1 ea PO BID #20 tab 01/05/20 [Rx Last Taken Unknown] Allergy/AdvReac Type Severity Reaction Status Date / Time corn Allergy Food Verified 07/10/20 14:21 Allergy grape Allergy Food Verified 07/10/20 14:21 Allergy monosodium glutamate Allergy Food Verified 07/10/20 14:21 Allergy nut - unspecified Allergy Food Verified 07/10/20 14:21 Allergy Quinolones AdvReac PT UNSURE Verified 07/10/20 14:21 OF REACTION Family History Mother Bleeding disorder Kidney disease Lupus CVA (cerebral vascular accident) Father Throat cancer CVA (cerebral vascular accident) Surgical History History of excision of lesion History of hand surgery History of sinus surgery Social History Smoking Status: Never smoker alcohol intake: current details: LIGHT substance use type: does not use additional social history: DOES TAKE ASPIRIN DAILY DOES TAKE IBUPROFEN ROS ROS ED Constitutional Constitutional ED: Denies chills or fever(s) Eyes Eyes: Denies change in vision ENT ENT ED: Denies sore throat Cardiovascular Cardiovascular: Reports chest pain and other Details: Right rib pain Respiratory/Chest Respiratory/Chest: Denies cough or dyspnea Gastrointestinal Gastrointestinal: Denies abdominal pain, diarrhea, nausea or vomiting Genitourinary Genitourinary ED: Denies dysuria Musculoskeletal Musculoskeletal: Denies back pain or neck pain Integumentary Denies rash Neurologic Neurologic: Denies headache(s) Psychiatric Psychiatric: Denies anxiety or depression Endocrine Endocrinology: Denies polydipsia or polyuria Allergic/Immunologic Allergic/Immunologic ED: Denies urticaria EXAM Physical Exam Const Vital Signs: 07/10/20 14:22 07/10/20 14:26 07/10/20 14:34 Temperature 96.5 F L Temperature Source Temporal Pulse Rate 81 83 Pulse Rate [1 (Initial Baseline)] Pulse Rate [2] Respiratory Rate 28 H 20 H Respiratory Rate [1 (Initial Baseline)] Respiratory Rate [2] Respiratory Effort Normal Non-Labored Respiratory Depth Normal Respiratory Pattern Normal Blood Pressure 130/67 H 130/67 H Blood Pressure [1 (Initial Baseline)] Blood Pressure [2] Blood Pressure Mean 88 88 Pulse Ox 97 97 Oxygen Delivery Method Room Air Room Air Room Air Oxygen Delivery Method [1 (Initial Baseline)] Oxygen Delivery Method [2] Oxygen Flow Rate (L/min) 94 Oxygen Flow Rate (L/min) [1 (Initial Baseline)] Oxygen Flow Rate (L/min) [2] 07/10/20 15:35 07/10/20 16:00 07/10/20 16:05 Temperature Temperature Source Pulse Rate 109 H 90 88 Pulse Rate [1 (Initial Baseline)] 99 Pulse Rate [2] 98 Respiratory Rate 22 H 20 H 26 H Respiratory Rate [1 (Initial Baseline)] 25 H Respiratory Rate [2] 24 H Respiratory Effort Respiratory Depth Respiratory Pattern Blood Pressure 128/94 H 125/67 H 134/71 H Blood Pressure [1 (Initial Baseline)] 103/69 Blood Pressure [2] 126/95 H Blood Pressure Mean Pulse Ox 96 97 97 Oxygen Delivery Method Room Air Room Air Room Air Oxygen Delivery Method [1 (Initial Baseline)] Nasal Cannula Oxygen Delivery Method [2] Nasal Cannula Oxygen Flow Rate (L/min) Oxygen Flow Rate (L/min) [1 (Initial Baseline)] 2 Oxygen Flow Rate (L/min) [2] 2 07/10/20 16:10 Temperature Temperature Source Pulse Rate 86 Pulse Rate [1 (Initial Baseline)] Pulse Rate [2] Respiratory Rate 26 H Respiratory Rate [1 (Initial Baseline)] Respiratory Rate [2] Respiratory Effort Respiratory Depth Respiratory Pattern Blood Pressure 134/70 H Blood Pressure [1 (Initial Baseline)] Blood Pressure [2] Blood Pressure Mean Pulse Ox 96 Oxygen Delivery Method Room Air Oxygen Delivery Method [1 (Initial Baseline)] Oxygen Delivery Method [2] Oxygen Flow Rate (L/min) Oxygen Flow Rate (L/min) [1 (Initial Baseline)] Oxygen Flow Rate (L/min) [2] Positive well nourished and well developed General Appearance ED: well developed HEENT trauma Eyes PERRL and EOMs intact bilaterally Neck Neck Narrative: No C-spine tenderness. Chest Wall inspection of chest normal Chest Narrative: Right chest wall tenderness. No crepitus. Resp normal respiratory effort and clear to auscultation bilaterally Cardio regular rhythm Rate: regular rate GI GI Narrative: No focal abdominal tenderness. Hypoactive bowel sounds present. Extremity Extremity Narrative: Tenderness of the right clavicle. Strong distal pulses in the right upper extremity. Neuro oriented x3 Sensorium / Orientation: alert PROC Procedures Other Procedures Procedure(s): Procedural sedation and right chest tube placement. Patient was given 2 aliquots of propofol, total of 70 mg. Right chest wall was prepped and draped. Heimlich valve chest tube was placed. Line was secured in place. Repeat chest x-ray per my interpretation reveals improvement in her pneumothorax. Total sedation time 7 minutes. MDM MDM MDM Narrative Medical decision making narrative: Patient given fentanyl and Zofran for pain. Sent immediately for CT scans. Lab Data Attestation: I reviewed the patient's lab results. Labs: Laboratory Results - last 24 hr 07/10/20 07/10/20 14:35 14:35 WBC 15.4 H RBC 4.23 Hgb 12.8 Hct 39.3 MCV 92.9 MCH 30.3 MCHC 32.6 RDW Std Deviation 44.2 H RDW Coeff of Aguila 13.0 Plt Count 396 MPV 9.0 Immature Gran % (Auto) 0.800 Neut % (Auto) 62.1 Lymph % (Auto) 30.0 [place] % (Auto) 4.5 Eos % (Auto) 2.2 Baso % (Auto) 0.4 Absolute Neuts (auto) 9.5 H Absolute Lymphs (auto) 4.62 H Nucleated RBC % 0 Sodium 136 Potassium 3.5 Chloride 102 Carbon Dioxide 27.0 Anion Gap 7 BUN 18 Creatinine 0.86 Estim Creat Clear Calc 61.03 Est GFR (MDRD) Af Amer 86 Est GFR (MDRD) Non-Af 71 BUN/Creatinine Ratio 21.0 H Glucose 108 H Calcium 8.7 Radiography Diagnostic Testing: Radiology Impression Brain CT 07/10/20 14:32 IMPRESSION: No acute findings in the head/brain. Individualized dose optimization techniques were used for this CT. at 1543 Reported and signed by: Patrick Tovar MD Electronically Signed: Patrick Tovar MD at 15:42 EDT Tel , Service support , Cervical Spine CT 07/10/20 14:32 IMPRESSION: 1. No acute osseous abnormalities. 2. Mild degenerative changes with disc space narrowing. 3. Straightening of the normal cervical lordosis which may be due to a muscular strain. Individualized dose optimization techniques were used for this CT. at 1545 Reported and signed by: Patrick Tovar MD Electronically Signed: Patrick Tovar MD at 15:43 EDT Tel , Service support , Chest/Abdomen/Pelvis CT 07/10/20 14:34 IMPRESSION: 1. Fracture of the right clavicle as well as the right second through sixth ribs anteriorly as well as the right seventh eighth and 10th ribs posteriorly. There is a moderate sized right-sided pneumothorax anteriorly. 2. No acute abnormalities in the abdomen or pelvis. Individualized dose optimization techniques were used for this CT. at 1550 Reported and signed by: Patrick Tovar MD Electronically Signed: Patrick Tovar MD at 15:49 EDT Tel , Service support , ADDENDUM: 07/10/20 1605 IMPRESSION: 1. Fracture of the right clavicle as well as the right second through sixth ribs anteriorly as well as the right seventh eighth and 10th ribs posteriorly. There is a moderate sized right-sided pneumothorax anteriorly. 2. No acute abnormalities in the abdomen or pelvis. Individualized dose optimization techniques were used for this CT. at 1550 Reported and signed by: Patrick Tovar MD N.B. : The above information has been verbally conveyed by Patrick Tovar MD to Dr Rich MD, on 07/10/2020 15:58:36 (ET). Electronically Signed: Patrick Tovar MD at 15:49 EDT Tel , Service support , EKG Initial EKG: Attestation: I personally reviewed and interpreted this EKG as follows: Interpretation: Sinus Tachycardia (Sinus tach at 103. Mild lateral ST depression.) Treatment and Re-Evaluation Comments:: Test results discussed with the patient. She was consented for procedural sedation a chest tube placement. Patient was given a total of 70 mg of propofol. Heimlich valve chest tube was placed to the right chest. Repeat chest x-ray per my interpretation appears to have improving pneumothorax. Patient be discussed with trauma center in [place] for transfer. Critical Care Time Critical Care Time: Yes Critical care time (excluding procedures): 30-74 minutes (30-minute), Discussing w/Patient &/or Family/Syruper, Discussing w/Consultants, Arranging Admission or Transfer and Performing Direct Patient Care at Bedside Discharge Plan Triage Chief Complaint: Trauma ED Provider: Elida Glover Dx/Rx/DC Orders Clinical Impression: Multiple fractures of ribs, Pneumothorax on right Prescriptions: No Action estradiol 0.5 MG tablet 0.5 mg PO DAILY RF: 0 progesterone micronized 100 MG capsule 100 mg PO DAILY RF: 0 fluoxetine 40 MG capsule 40 mg PO DAILY RF: 0 montelukast 10 MG tablet 10 mg PO DAILY RF: 0 cetirizine 10 MG tablet 10 mg PO DAILY RF: 0 ascorbic acid (vitamin C) 500 MG tablet 500 mg PO DAILY RF: 0 zinc 50 MG tablet 50 mg PO DAILY RF: 0 magnesium 250 MG tablet 250 mg PO DAILY RF: 0 albuterol sulfate 1 INHALER inhaler 1 - 2 puff INHALATION Q4H PRN PRN (Reason: Asthma) RF: 0 cholecalciferol (vitamin D3) 1,000 UNIT tablet 1,000 unit PO DAILY RF: 0 thyroid (pork) 60 MG tablet 105 mg PO DAILY RF: 0 Lactobac acidoph-fructooligos 1 EACH tablet 1 ea PO BID Qty: 20 RF: 0 Primary Care Provider: Tereso Tejada Referrals: Tereso Tejada DO [Primary Care Provider] - Disposition Disposition: Acute Care Hospital Discharge Location: [facility]
[2020-07-10] MEDS: Propofol 200 MG/20 ML Vial IV BOLUS (15:48)
--- NOTE | 2020-07-10 16:00 | RAD_ITS ---
rScriptor Unformatted Report Format: Options: n 2f 2i act cap dr [facility]blanc [facility] Gender: Female : 1955 Exam: XR Chest 1 View Comparison: 02/25/2015 History: chest tube placement Contrast: Small bore right-sided chest tube is in place. There is a small right apical pneumothorax present with a maximum pleural separation of 4 mm. There is a fracture of the right clavicle. Impression. Small bore right-sided chest tube with a small right apical pneumothorax less than 5%. Impression. Fracture of the right clavicle. at 1631 Reported and signed by: Patrick Tovar MD Electronically Signed: Patrick Tovar MD at 16:30 EDT Tel , Service support , RAD/Chest 1 View (Portable)
--- NOTE | 2020-07-10 16:19 | NURSING ---
CALLING [facility] FAXED FACESHEET
--- NOTE | 2020-07-10 16:38 | NURSING ---
1632 CALLED TIM, ETA IS 30 MIN
[2020-07-10] MEDS: HYDROmorphone 0.5 MG/0.5 ML SYRINGE IV (17:24)
== END 2020-07-10 17:35 | disposition short-term general hospital (02) ==
PROVIDERS: Emergency Provider Emergency Medicine; PCP Student in an Organized Health Care Education/Training Program
DX: S27.0XXA Traumatic pneumothorax, initial encounter (principal); S22.41XA Multiple fractures of ribs, right side, initial encounter for closed fracture; V80.010A Animal-rider injured by fall from or being thrown from horse in noncollision accident, initial encounter; Y93.52 Activity, horseback riding; Y92.9 Unspecified place or not applicable; J45.909 Unspecified asthma, uncomplicated; M85.80 Other specified disorders of bone density and structure, unspecified site; E07.9 Disorder of thyroid, unspecified; M65.4 Radial styloid tenosynovitis [de Quervain]; Z87.440 Personal history of urinary (tract) infections; Z79.899 Other long term (current) drug therapy
CPT/HCPCS: 32551; 70450; 71045; 71260; 72125; 74177; 80048; 85025; 93005; 96374; 96375; 99285; J7030; Q9967; A4216; J2405

== ENCOUNTER → 2021-12-13 | Outpatient (CLI) | payer OTHER, SELFPAY ==
--- NOTE | 2021-12-13 14:22 | BI_ITS ---
MAMMOGRAPHY - BILATERAL SCREENING REASON FOR EXAM: Female, 66 years old. Routine annual screening examination. PERTINENT HISTORY: Aunt with breast cancer. TECHNIQUE: Digital bilateral breast eva (3D mammographic acquisition) in the CC and MLO projections. 2-D mediolateral oblique (MLO) and craniocaudad (CC) views of both breasts were obtained. CAD: Full Field Digital Mammography with Computer Added Detection was performed. COMPARISON: Comparison is made with prior study dated 08/05/2019 and 01/06/2015. FINDINGS: Breast Composition: The breasts are heterogeneously dense, which may obscure small masses. There are no dominant masses or suspicious calcifications. Stable small benign appearing bilateral axillary lymph nodes. No other significant abnormalities are identified. There has been no significant change since the prior study. BI/SCRN MAMM (CAD)W/EVA BILAT IMPRESSION: Stable bilateral screening mammogram. Yearly follow-up mammogram recommended. (A) ASSESSMENT CATEGORY: BIRADS Category 2: Benign. A letter regarding these results will be sent to the patient by the facility within 30 days. Approximately 10% of breast cancers are not detected by mammography. A normal mammogram should not delay biopsy of a clinically suspicious abnormality. [id number] Electronically Signed: Silvestre Suggs MD at 15:25 EDT ,
--- NOTE | 2021-12-13 14:25 | BD_ITS ---
STUDY: DUAL ENERGY X-RAY ABSORPTIOMETRY / DXA REASON FOR EXAM: Female, 66 years old. Post menopausal screening TECHNIQUE: Bone Mineral Density (BMD) measurements of lumbar spine and bilateral hips were obtained. COMPARISON: 2019, 2014, 2010 FINDINGS: Lumbar Spine (L1-L4): g/cm2 (1.048) / T-score (0.0) / Z-score (1.7) Findings are suggestive of normal bone density with a low fracture risk for lumbar spine. Left Femur Total: g/cm2 (0.843) / T-score (-0.8) / Z-score (0.4) Left Femoral Neck: g/cm2 (0.649) / T-score (-1.8) / Z-score (-0.3) Right Femur Total: g/cm2 (0.756) / T-score (-1.5) / Z-score (-0.3) Right Femoral Neck: g/cm2 (0.672) / T-score (-1.6) / Z-score (-0.1) The T-Scores on the most recent prior examination were: There has been an increase in bone marrow density in the lumbar spine since the previous study and a decrease in the femurs BD/Dexa Bone Density Study IMPRESSION: The patient is considered osteopenic as outlined below according to World Endy Organization (WHO) criteria with a moderate fracture risk. Reference Information: The T-score is the number of standard deviations above or below the standard which is normal for young adults at their peak bone mineral density. The World Health Organization (WHO) interprets the T-scores as follows: Above -1 Normal bone density Between -1 and -2.5 Osteopenia Equal to / or below -2.5 Osteoporosis As a practical clinical guideline, osteopenia may be graded as follows: Mild -1 through -1.5 Moderate -1.6 through -2.0 Severe -2.1 through -2.4 The Z-score is the number of standard deviations above or below age-matched controls. A Z-score of less than -1.5 would be considered abnormal. References: 1. NIH Osteoporosis and Related Bone Diseases www osteo.org 2. International Society for Clinical Densitometry www iscd.org 3. National Osteoporosis Foundation www nof.org Electronically Signed: Paul Diamond MD at 8:12 EDT ,
== END | disposition home or self-care (01) ==
LOC: OPBD 14:20
PROVIDERS: PCP Student in an Organized Health Care Education/Training Program; Referring Provider Student in an Organized Health Care Education/Training Program; Visit Provider Student in an Organized Health Care Education/Training Program
DX: M85.89 Other specified disorders of bone density and structure, multiple sites (principal); Z12.31 Encounter for screening mammogram for malignant neoplasm of breast
CPT/HCPCS: 77063; 77067; 77080

== ENCOUNTER → 2024-04-10 | Outpatient (CLI) | payer OTHER, SELFPAY ==
--- NOTE | 2024-04-10 08:08 | BI_ITS ---
PROCEDURE: SCRN MAMM (CAD)W/EVA BILAT REASON FOR EXAM: F, Age 68 y/o, no family history. Routine mammographic follow-up. TECHNIQUE: Bilateral screening digital breast tomosynthesis with 2D and 3D images. Computer aided detection. COMPARISON: Prior exam(s) dating back to December 13, 2021.. FINDINGS: The breasts are extremely dense which lowers the sensitivity of mammography. Stable small bilateral axillary lymph nodes. No suspicious masses, areas of developing architectural distortion, or suspicious calcifications. BI/SCRN MAMM (CAD)W/EVA BILAT IMPRESSION: BI-RADS 2: BENIGN. RECOMMEND ANNUAL MAMMOGRAPHIC SCREENING. Follow-up code: Routine Follow-up The patient will be notified of the results by letter. Reading Location: [place] [id number]
--- NOTE | 2024-04-10 08:08 | BD_ITS ---
PROCEDURE: DEXA BONE DENSITY STUDY REASON FOR EXAM: Patient is postmenopausal. F, age 68 y/o . TECHNIQUE: DEXA scan of the lumbar spine and both hips. COMPARISON: Comparison is made with prior study December 13, 2021. FINDINGS: Lumbar Spine (L1-L4): g/cm2 (1.041)/T-score (-0.1)/Z-score (1.8) findings are suggestive of normal with a low fracture risk. Left Femur Total: g/cm2 (0.860)/T-score (-0.7)/Z-score (0.6) Left Femoral Neck: g/cm2 (0.670)/T-score (-1.6)/Z-score (0.0) Right Femur Total: g/cm2 (0.781)/T-score (-1.3)/Z-score (0.0) Right Femoral Neck: g/cm2 (0.653)/T-score (-1.8)/Z-score (-0.2) The T-Scores on the most recent prior examination were: Lumbar Spine (L1-L4): There has been loss of bone density since the previous examination. Left Femur Total: Improvement of 2%. Right Femur Total: Improvement of 3.3%. BD/Dexa Bone Density Study IMPRESSION: The patient is considered osteopenia as outlined below according to World Endy Organization (WHO) criteria with a moderate fracture risk. There has been improvement of bone density since the previous e xamination. Reading Location: [place] [address]
== END | disposition home or self-care (01) ==
LOC: OPBI 08:06
PROVIDERS: PCP Student in an Organized Health Care Education/Training Program; Referring Provider Student in an Organized Health Care Education/Training Program; Visit Provider Student in an Organized Health Care Education/Training Program
DX: Z12.31 Encounter for screening mammogram for malignant neoplasm of breast (principal); M85.88 Other specified disorders of bone density and structure, other site
CPT/HCPCS: 77063; 77067; 77080